=== PATIENT | female | born 1955 | race Two or more races ===

== ENCOUNTER 2017-08-14 23:35 | Emergency (ER) | payer MEDICAID ==
[~2017-08-14] VITALS: Ht 154.9 cm; Wt 89.4 kg
[~2017-08-14 23:35] MED LIST: CYCLOBENZAPRINE10 MG ORAL; IBUPROFEN600 MG ORAL; KENALOG 0.1% LO60 ML APPLIC; MEDROL DOSEPAK4 MG ORAL; NAPROXEN500 M1 ORAL; NKM; NORCO 5-325 TA1 EAC1 ORAL; NORCO 5-325 TA1 EACH ORAL; PRILOSEC40 MG ORAL; SOMA350 MG ORAL; SOMA350 MG PO; VICODIN1 TAB PO
[2017-08-14 23:50] VITALS: BP 138/82
[2017-08-15] MEDS ORDERED: HYDROmorphone 1mg/ml Carpuject IVP ONE (00:15)
[2017-08-15 00:43] LABS: BASOPHILS % (AUTO) 1.4 % (0.0-2.0); EOSINOPHILS % (AUTO) 2.2 % (0.0-3.0); LYMPHOCYTES % (AUTO) 40.8 % (20.0-45.0); MEAN CORPUSCULAR HEMOGLOBIN 32.5 PG (27.0-31.0); MEAN CORPUSCULAR HGB CONC 33.9 G/DL (32.0-36.0); MEAN CORPUSCULAR VOLUME 96 FL (80-99); MEAN PLATELET VOLUME 7.9 FL (6.5-10.1); MONOCYTES % (AUTO) 7.5 % (1.0-10.0); PLATELET COUNT 243 K/UL (150-450); RED BLOOD COUNT 4.31 M/UL (4.20-5.40); RED CELL DISTRIBUTION WIDTH 13.4 % (11.6-14.8)
[2017-08-15 00:47] LABS: APPEARANCE,URINE CLEAR; KETONES,URINE NEGATIVE (NEGATIVE); LEUKOCYTE ESTERASE ,URINE NEGATIVE (NEGATIVE); NITRITE,URINE NEGATIVE (NEGATIVE); PH,URINE 5 (4.5-8.0); PROTEIN,URINE NEGATIVE (NEGATIVE); UROBILINOGEN,URINE NORMAL MG/DL (0.0-1.0)
[2017-08-15 01:13] LABS: ALANINE AMINOTRANSFERASE 29 U/L (12-78); ALBUMIN/GLOBULIN RATIO 1.2 (1.0-2.7); ANION GAP 8 mmol/L (5-15); ASPARTATE AMINO TRANSFERASE 19 U/L (15-37); CALCIUM 9.3 MG/DL (8.5-10.1); CARBON DIOXIDE 32 MMOL/L (21-32); CHLORIDE 102 MMOL/L (98-107); CREATININE 0.8 MG/DL (0.55-1.30); GLOMERULAR FILTRATION RATE > 60 mL/min (>60); LIPASE 214 U/L (73-393); POTASSIUM 3.4 MMOL/L (3.5-5.1); SODIUM 142 MMOL/L (136-145); TOTAL PROTEIN 7.3 G/DL (6.4-8.2)
[2017-08-15] MEDS ORDERED: IBUPROFEN600 MG ORAL (01:50)
--- NOTE | 2017-08-15 01:51 | Emergency Room Report ---
History of Present Illness General Chief Complaint: Pain Source: Patient Present Illness HPI Is a 62-year-old female with a history of back pain requiring surgery. She said she is taking Logan. She presents with chief complaint of left lower quadrant abdominal pain. This is a recurring issue also. She said that she was told that she has a hernia and is causing her pain. She denies any nausea vomiting. Pain for this episode occurred for 2 days now. Left lower quadrant. Severe. 10 out of 10. No nausea no vomiting. No diarrhea. Nothing made it better. Movement made it worse. Allergies: Coded Allergies: No Known Allergies (Unverified , 07/13/12) Patient History Past Medical History: see triage record, old chart reviewed Past Surgical History: other Pertinent Family History: none Social History: Reports: smoking Now: No Immunizations: other Reviewed Nursing Documentation: PMH: Agreed, PSxH: Agreed Nursing Documentation-PMH Hx Neurological Problems: Yes - BACK SURGERY Review of Systems Eye: Denies: eye pain, blurred vision ENT: Denies: ear pain, nose congestion, throat swelling Respiratory: Denies: cough, shortness of breath Cardiovascular: Denies: chest pain, palpitations Gastrointestinal: Reports: abdominal pain, Denies: diarrhea, nausea, vomiting Musculoskeletal: Denies: back pain, joint pain Skin: Denies: rash Neurological: Denies: headache, numbness Endocrine: Denies: increased thirst, increased urine Hematologic/Lymphatic: Denies: easy bruising All Other Systems: negative except mentioned in HPI Physical Exam Vital Signs Date Time Temp Pulse Resp B/P (MAP) Pulse Ox O2 Delivery O2 Flow Rate FiO2 08/14/17 23:42 97.9 73 18 97 Room Air vitals normal Sp02 EP Interpretation: reviewed, normal General Appearance: well appearing, no apparent distress, alert Head: normocephalic, atraumatic Eyes: bilateral eye PERRL, bilateral eye EOMI ENT: hearing grossly normal, normal pharynx Neck: full range of motion, supple, no meningismus Respiratory: chest non-tender, lungs clear, normal breath sounds Cardiovascular #1: regular rate, rhythm, no murmur Gastrointestinal: normal bowel sounds, no mass, no organomegaly, no bruit, non- distended, tenderness - Left lower quadrant Musculoskeletal: back normal, gait/station normal, normal range of motion Psychiatric: mood/affect normal Skin: warm/dry Medical Decision Making Diagnostic Impression: Primary Impression: Abdominal pain Qualified Codes: R10.32 - Left lower quadrant pain ER Course Patient presents With abdominal pain. No acute abdomen. No evidence of diverticulitis. No evidence of appendicitis. There is no hernia in the left lower or inguinal area. Patient is better now. We'll discharge home. Last Vital Signs Date Time Temp Pulse Resp B/P (MAP) Pulse Ox O2 Delivery O2 Flow Rate FiO2 08/15/17 01:06 97.8 08/14/17 23:42 73 18 97 Room Air Status: improved Disposition: HOME, SELF-CARE Condition: Stable Scripts Ibuprofen* (MOTRIN*) 600 Mg Tablet 600 MG ORAL THREE TIMES A DAY, #30 TAB 0 Refills Prov: CAPRICE NGUYEN M.D. 08/15/17 Referrals: NON PHYSICIAN (PCP) Patient Instructions: PAIN, Uncertain Cause (Acute) Additional Instructions: Followup your Dr. in 7 days. Return if symptom worsen. You may benefit from referral to see a literacy coordinator for colonoscopy one has been done recently. CAPRICE NGUYEN M.D. Aug 15, 2017 01:51
[2017-08-15 01:58] VITALS: BP 138/82
--- NOTE | 2017-08-15 09:50 | Diagnostic Imaging Report ---
Indication: Abdominal pain Technique: Spiral acquisitions obtained through the abdomen and pelvis. No oral contrast utilized, per emergency room physician request No IV contrast utilized, per referring physician request.. Multiplanar reconstructions were generated. Total dose length product 1578 mGycm. CTDIvol(s) 32 mGy. Dose reduction achieved using automated exposure control Comparison: None Findings: The appendix is not definitely identified, but no findings to suggest acute appendicitis are evident. No evidence of diverticulosis or diverticulitis. No small bowel distention. No free or loculated intraperitoneal air or fluid. Distal esophagus, stomach, duodenum are unremarkable. There are midline fascial wire sutures. There is a tiny fat-containing umbilical hernia Lack of IV contrast limits assessment of solid organs. The liver, gallbladder, bile ducts, pancreas, spleen, are unremarkable. The left kidney demonstrates a 15 mm cyst. The right kidney demonstrates a 3 mm nonobstructive intrarenal calyceal calculus. No hydronephrosis or hydroureter, or ureteral calculi. Unremarkable bladder. Uterus and adnexal structures are unremarkable. No pelvic mass or adenopathy. No retroperitoneal or mesenteric mass or adenopathy. There is evidence of extensive prior lower spinal surgery. The included lung bases are clear. Impression: No definite acute abnormality Nonobstructing right kidney intrarenal calyceal calculus Evidence of prior spinal fusion surgery Other findings as noted, including left renal cyst, tiny fat-containing umbilical hernia This agrees with the preliminary interpretation provided overnight by [facility] teleradiology service. The CT scanner at [facility] is accredited by the [employer] and the scans are performed using protocols designed to limit radiation exposure to as low as reasonably achievable to attain images of sufficient resolution adequate for diagnostic evaluation.
== END 2017-08-15 01:58 | disposition home or self-care (01) ==
LOC: EMR 08-15 00:30
DX: R10.32 Left lower quadrant pain (principal); F17.200 Nicotine dependence, unspecified, uncomplicated; N20.0 Calculus of kidney; Z98.1 Arthrodesis status
CPT/HCPCS: 36415; 74176; 80053; 81003; 83690; 85025; 96361; 96374; 96375; 99284; J1170; J2405

== ENCOUNTER 2017-08-24 21:47 | Emergency (ER) | payer MEDICAID ==
[~2017-08-24] VITALS: Ht 154.9 cm; Wt 91.2 kg
[2017-08-24 22:24] VITALS: BP 123/62
--- NOTE | 2017-08-24 22:41 | Emergency Room Report ---
History of Present Illness General Chief Complaint: Abdominal Pain Source: Patient, Family Member, Medical Record Present Illness HPI This is a 62-year-old female presents with chief complaint of left lower quadrant pain. Has been ongoing for several months. I saw her about a week ago and blood work was unremarkable. CT scan was unremarkable. She said that she has a hernia in the left lower quadrant. She was told this at [facility] 6 months ago. I checked the records and there was no such thing. She present to Dr. Zamarripa's office today stating that she has a hernia and she is in severe pain. He wrote prescription for pain medication refer her to a surgeon. He also sent her here for incarcerated hernia. I spoke with him regarding this. He is basing this on her account. Allergies: Coded Allergies: No Known Allergies (Unverified , 07/13/12) Patient History Past Medical History: see triage record, old chart reviewed Past Surgical History: other Pertinent Family History: none Social History: Denies: smoking Now: No Immunizations: other Reviewed Nursing Documentation: PMH: Agreed, PSxH: Agreed Nursing Documentation-PMH Hx Neurological Problems: Yes - BACK SURGERY Review of Systems Eye: Denies: eye pain, blurred vision ENT: Denies: ear pain, nose congestion, throat swelling Respiratory: Denies: cough, shortness of breath Cardiovascular: Denies: chest pain, palpitations Gastrointestinal: Reports: abdominal pain, Denies: diarrhea, nausea, vomiting Musculoskeletal: Denies: back pain, joint pain Skin: Denies: rash Neurological: Denies: headache, numbness Endocrine: Denies: increased thirst, increased urine Hematologic/Lymphatic: Denies: easy bruising All Other Systems: negative except mentioned in HPI Physical Exam Vital Signs Date Time Temp Pulse Resp B/P (MAP) Pulse Ox O2 Delivery O2 Flow Rate FiO2 08/24/17 21:54 98.2 87 16 135/72 96 Room Air vitals normal Sp02 EP Interpretation: reviewed, normal General Appearance: well appearing, no apparent distress, alert Head: normocephalic, atraumatic Eyes: bilateral eye PERRL, bilateral eye EOMI ENT: hearing grossly normal, normal pharynx Neck: full range of motion, supple, no meningismus Respiratory: chest non-tender, lungs clear, normal breath sounds Cardiovascular #1: regular rate, rhythm, no murmur Gastrointestinal: normal bowel sounds, no mass, no organomegaly, no bruit, non- distended, tenderness - Diffuse but mostly left lower quadrant Musculoskeletal: back normal, gait/station normal, normal range of motion Neurologic: alert, oriented x3 Psychiatric: other - Patient was very histrionic moaning and crying. Skin: warm/dry Medical Decision Making Diagnostic Impression: Primary Impression: Abdominal pain Qualified Codes: R10.32 - Left lower quadrant pain ER Course Patient present with abdominal pain. She been here several time for abdominal pain. 6 months ago there was no CT scan done. No one diagnosed with hernia. I did a CT scan on her last visit which is about over a week ago. There was a small umbilical hernia that containing only fat. There is no hernia or issue in the left lower quadrant. This is the first time that Dr. Zamarripa saw patient. He was basing his diagnosis of incarcerated hernia on her history. He already refer her to surgeon. Now she is calm and no longer in pain. I see no evidence of an acute abdomen. No evidence of hernia. No evidence of obstruction. We'll discharge home. Last Vital Signs Date Time Temp Pulse Resp B/P (MAP) Pulse Ox O2 Delivery O2 Flow Rate FiO2 08/24/17 22:24 98.2 79 16 123/62 96 Room Air Status: improved Disposition: HOME, SELF-CARE Condition: Stable Patient Instructions: Abdominal Pain, Adult Additional Instructions: Followup with your DrKeisha in 7 days. You have already been referred to see a surgeon. You do not have a hernia in the left lower quadrant. Return if symptom worsen. CAPRICE NGUYEN M.D. Aug 24, 2017 22:41
[2017-08-24 23:00] VITALS: BP 123/62
== END 2017-08-24 23:00 | disposition home or self-care (01) ==
LOC: EMR 22:15
DX: R10.32 Left lower quadrant pain (principal); Z98.890 Other specified postprocedural states
CPT/HCPCS: 99282

== ENCOUNTER 2019-05-04 00:42 | Emergency (ER) | payer MEDICAID ==
[~2019-05-04] VITALS: Ht 154.9 cm; Wt 86.2 kg
--- NOTE | 2019-05-04 01:05 | NUR ---
ED Nurse Note: Pt from home with c/o left lower back and arm pain s/p fall, pt hs had x 3 surgeries to area and on pain management, pt denies k.o or any other injuries or complaints, pt sitting in wheelchair, is present also.
--- NOTE | 2019-05-04 01:23 | Emergency Room Report ---
History of Present Illness General Chief Complaint: Back Injury Source: Patient Present Illness HPI This is a 64-year-old female with history of chronic pain. She has previous back surgery. She presents with chief complaint of low back pain. She claimed that she slipped and fell in the kitchen 5 days ago. She says she got an MRI of her back after her fall. She denies any fever or chills. Pain is 10 out of 10. [place]is is not helping her. No syncope. No incontinence of bowel or urine. No radiation of her pain. Denies any other complaint. Allergies: Coded Allergies: No Known Allergies (Unverified , 07/13/12) Patient History Past Medical History: see triage record, old chart reviewed Past Surgical History: other Pertinent Family History: none Social History: Reports: smoking Now: No Immunizations: other Reviewed Nursing Documentation: PMH: Agreed; PSxH: Agreed Nursing Documentation-PMH Past Medical History: No Stated History Hx Neurological Problems: Yes - BACK SURGERY Review of Systems Eye: Denies: eye pain, blurred vision ENT: Denies: ear pain, nose congestion, throat swelling Respiratory: Denies: cough, shortness of breath Cardiovascular: Denies: chest pain, palpitations Gastrointestinal: Denies: abdominal pain, diarrhea, nausea, vomiting Musculoskeletal: Reports: back pain; Denies: joint pain Skin: Denies: rash Neurological: Denies: headache, numbness Endocrine: Denies: increased thirst, increased urine Hematologic/Lymphatic: Denies: easy bruising All Other Systems: negative except mentioned in HPI Physical Exam Vital Signs Date Time Temp Pulse Resp B/P (MAP) Pulse Ox O2 Delivery O2 Flow Rate FiO2 05/04/19 00:54 97.5 62 18 114/71 (85) 96 Room Air Vitals normal Sp02 EP Interpretation: reviewed, normal General Appearance: well appearing, no apparent distress, alert, obese Head: normocephalic, atraumatic Eyes: bilateral eye PERRL, bilateral eye EOMI ENT: hearing grossly normal, normal pharynx Neck: full range of motion, supple, no meningismus Respiratory: chest non-tender, lungs clear, normal breath sounds Cardiovascular #1: regular rate, rhythm, no murmur Gastrointestinal: normal bowel sounds, non tender, no mass, no organomegaly, no bruit, non-distended Musculoskeletal: back normal - Postsurgical scar. No redness. No step-off., gait/station normal, normal range of motion Psychiatric: mood/affect normal Medical Decision Making Diagnostic Impression: Primary Impression: Acute exacerbation of chronic low back pain ER Course She with exacerbation of her chronic lower back pain. He does not add up. Her MRI shoulder was done on April 20. When I point out to patient that she fell 5 days ago based on her history and she said that she had MRI done afterward. I told her the date does not match up. She then changed her story to state that she had MRI first and then fell a week later. No evidence of cauda equina syndrome, spinal epidural abscess or neoplastic process. She is getting pain medication, Soma and alprazolam by Dr. Zamarripa. I see no need for more prescription. Last Vital Signs Date Time Temp Pulse Resp B/P (MAP) Pulse Ox O2 Delivery O2 Flow Rate FiO2 05/04/19 00:54 97.5 62 18 114/71 (85) 96 Room Air Status: improved Disposition: HOME, SELF-CARE Condition: Stable Patient Instructions: Back Pain, Adult Additional Instructions: Follow-up with your doctor in 7 days. Return if symptoms worsen. You may need to see a pain specialist. Lakhwinder Rowe MD May 04, 2019 01:23
[2019-05-04] MEDS ORDERED: Morphine Sulfate 10mg/ml Inj IM ONE (01:30)
[2019-05-04] MEDS ORDERED: Ketorolac 60mg Inj IM ONE (01:30)
[2019-05-04 01:45] VITALS: BP 114/71
--- NOTE | 2019-05-04 01:45 | NUR ---
ER DISCHARGE NOTE: Patient is cleared to be discharged per ERMD, pt is aox4, on room air, with stable vital signs. pt was given dc and prescription instructions, pt was able to verbalize understanding, pt id band removed without complications. pt is able to ambulate with steady gait. pt took all belongings.
== END 2019-05-04 01:45 | disposition home or self-care (01) ==
LOC: EMR 01:18
DX: M54.5 Low back pain (principal); G89.29 Other chronic pain; F17.200 Nicotine dependence, unspecified, uncomplicated; E66.9 Obesity, unspecified; Z68.35 Body mass index [BMI] 35.0-35.9, adult
CPT/HCPCS: 96372; 99283; J2270

== ENCOUNTER 2019-07-04 23:37 | Emergency (ER) | payer MEDICAID ==
[~2019-07-04] VITALS: Ht 154.9 cm; Wt 90.7 kg
--- NOTE | 2019-07-05 00:18 | Emergency Room Report ---
History of Present Illness General Chief Complaint: Chest Pain Source: Patient Present Illness HPI Patient was in her kitchen and started having a severe headache. Then she started having chest pressure rating down towards her left arm. Her daughter checked her blood pressure was elevated at that time. She is doing slightly better at this moment but she is concerned whether she is having a heart attack. Risk factors smoking. She also complained about nausea at that time but did not vomit. She actually states the headache is been going on for 2 days. She does have headaches like this occasionally. Headache was gradual onset. She denies fevers chills, productive cough, sore throat, blood thinners , oncologic problems, IV drug use and trauma. Headache is throbbing and rated severe. The chest pain is throbbing also radiating towards her shoulder and also rated as severe but poorly characterized. She feels it somewhat sharp. Also somewhat positional. No palpitations, diarrhea, dysuria, abdominal pain, shortness of breath, joint pain, rashes, depression, anxiety, visual changes. Patient has a history of COPD. Denies wheezing at this time. She also denies productive cough. Patient has sciatica on the right-hand side. In the past she was diagnosed with opiate dependence and narcotic seeking behavior. Allergies: Coded Allergies: No Known Allergies (Unverified , 07/13/12) Patient History Past Medical History: see triage record Social History: Reports: smoking, drug use - THC Social History Narrative From home Last Menstrual Period: na Reviewed Nursing Documentation: PMH: Agreed; PSxH: Agreed Nursing Documentation-PMH Hx Neurological Problems: Yes - BACK SURGERY Review of Systems All Other Systems: negative except mentioned in HPI Physical Exam Vital Signs Date Time Temp Pulse Resp B/P (MAP) Pulse Ox O2 Delivery O2 Flow Rate FiO2 07/04/19 23:47 97.2 76 19 128/76 (93) 100 Room Air Sp02 EP Interpretation: reviewed, normal General Appearance: well appearing, no apparent distress, GCS 15, non-toxic Head: normocephalic, atraumatic Eyes: bilateral eye normal inspection, bilateral eye PERRL, bilateral eye EOMI ENT: moist mucus membranes Neck: supple Respiratory: lungs clear, normal breath sounds, other - Some left-sided chest discomfort Cardiovascular #1: regular rate, rhythm, no edema Cardiovascular #2: 2+ radial (R), 2+ radial (L) Gastrointestinal: normal inspection, normal bowel sounds, non tender, no mass, non-distended, overweight Musculoskeletal: back normal, gait/station normal, normal range of motion, no calf tenderness Neurologic: alert, oriented x3, health editor III-XII nml as tested, motor strength/tone normal, DTRs symmetric, sensory intact, cerebellar normal, normal gait, speech normal Psychiatric: mood/affect normal - Slightly anxious Skin: no rash Medical Decision Making Diagnostic Impression: Primary Impression: Chest pain Qualified Codes: R07.9 - Chest pain, unspecified Additional Impression: Head ache Qualified Codes: R51 - Headache ER Course Patient presents with headache for 2 to 3 days chest pain that began this evening. Differential includes acute myocardial infarction, chest wall pain, pulmonary embolus, anxiety, migraine, tension headache, occult infection, hypertensive urgency amongst others. Clinically the patient does not have a pulmonary embolus. Patient evaluated with EKG, chest x-ray and labs. Based on her symptoms of her headache and neurologic exam CT the head is not indicated at this time. The patient is treated with a dose of aspirin and [place]. Patient is placed on shallot packer. Blood pressure is normal at this time. EKG normal sinus rhythm normal EKG. Chest x-ray no infiltrates normal heart size. Labs remarkable for negative troponin. Patient improved with treatment. Discussed etiologies of headache and chest pain. Discussed the need for follow- up with her doctor. She says she has an appointment today. Patient's requesting more treatment for pain. [place] repeated. Discussed with family also. No medical emergency at this time. Discussed with patient importance of smoking cessation and to discuss this with her doctor. Patient stable for outpatient observation and treatment. Laboratory Tests Test 07/05/19 00:30 07/05/19 02:32 White Blood Count 8.0 K/UL (4.8-10.8) Red Blood Count 4.18 M/UL (4.20-5.40) L Hemoglobin 13.1 G/DL (12.0-16.0) Hematocrit 39.7 % (37.0-47.0) Mean Corpuscular Volume 95 FL (80-99) Mean Corpuscular Hemoglobin 31.4 PG (27.0-31.0) H Mean Corpuscular Hemoglobin Concent 33.1 G/DL (32.0-36.0) Red Cell Distribution Width 12.2 % (11.6-14.8) Platelet Count 189 K/UL (150-450) Mean Platelet Volume 7.9 FL (6.5-10.1) Neutrophils (%) (Auto) 46.9 % (45.0-75.0) Lymphocytes (%) (Auto) 42.7 % (20.0-45.0) Monocytes (%) (Auto) 5.8 % (1.0-10.0) Eosinophils (%) (Auto) 3.2 % (0.0-3.0) H Basophils (%) (Auto) 1.4 % (0.0-2.0) Prothrombin Time 10.2 SEC (9.30-11.50) Prothrombin Time INR 1.0 (0.9-1.1) PTT 27 SEC (23-33) Sodium Level 143 MMOL/L (136-145) Potassium Level 3.7 MMOL/L (3.5-5.1) Chloride Level 107 MMOL/L (98-107) Carbon Dioxide Level 28 MMOL/L (21-32) Anion Gap 8 mmol/L (5-15) Blood Urea Nitrogen 22 mg/dL (7-18) H Creatinine 0.7 MG/DL (0.55-1.30) Estimate Glomerular Filtration Rate > 60 mL/min (>60) Glucose Level 118 MG/DL (74-106) H Calcium Level 8.8 MG/DL (8.5-10.1) Total Bilirubin 0.4 MG/DL (0.2-1.0) Aspartate Amino Transferase (AST) 17 U/L (15-37) Alanine Aminotransferase (ALT) 19 U/L (12-78) Alkaline Phosphatase 102 U/L (46-116) Total Creatine Kinase 99 U/L (26-308) Troponin I 0.000 ng/mL (0.000-0.056) Pro-B-Type Natriuretic Peptide 18 pg/mL (0-125) Total Protein 6.6 G/DL (6.4-8.2) Albumin 3.6 G/DL (3.4-5.0) Globulin 3.0 g/dL Albumin/Globulin Ratio 1.2 (1.0-2.7) Serum Alcohol < 3 mg/dL Urine Color Pending Urine Appearance Pending Urine pH Pending Urine Specific [place] Pending Urine Protein Pending Urine Glucose (UA) Pending Urine Ketones Pending Urine Blood Pending Urine Nitrite Pending Urine Bilirubin Pending Urine Urobilinogen Pending Urine Leukocyte Esterase Pending Urine Opiates Screen Pending Urine Barbiturates Screen Pending Phencyclidine (PCP) Screen Pending Urine Amphetamines Screen Pending Urine Benzodiazepines Screen Pending Urine Cocaine Screen Pending Urine Marijuana (THC) Screen Pending EKG Diagnostic Results Rate: normal Rhythm: NSR ST Segments: no acute changes Rhythm Strip Diag. Results EP Interpretation: yes Rhythm: NSR, no PVC's, no ectopy Chest X-Ray Diagnostic Results Chest X-Ray Diagnostic Results : Chest X-Ray Ordered: Yes # of Views/Limited/Complete: 1 View Indication: Chest Pain EP Interpretation: Yes Interpretation: no consolidation, no effusion, no pneumothorax Impression: No acute disease Electronically Signed by: Electronically signed by Rishabh Chinchilla MD Last Vital Signs Date Time Temp Pulse Resp B/P (MAP) Pulse Ox O2 Delivery O2 Flow Rate FiO2 07/05/19 01:18 97.1 07/04/19 23:47 76 19 128/76 (93) 100 Room Air Status: improved Disposition: HOME, SELF-CARE Condition: Improved Scripts Hydrocodone Bit/Acetaminophen 5-325* (NORCO 5-325*) 1 Each Tablet 1 TAB ORAL Q6H PRN for For Pain, #6 TAB 0 Refills Prov: Rishabh Chinchilla MD 07/05/19 Rishabh Chinchilla MD Jul 05, 2019 00:18
[2019-07-05] MEDS ORDERED: HYDROcodone/Acetamin 5/325 tab ORAL ONE ×2 (00:30→03:15)
[2019-07-05 01:15] VITALS: BP 134/77
[2019-07-05 01:15] LABS: BASOPHILS % (AUTO) 1.4 % (0.0-2.0); EOSINOPHILS % (AUTO) 3.2 % (0.0-3.0); HEMATOCRIT 39.7 % (37.0-47.0); HEMOGLOBIN 13.1 G/DL (12.0-16.0); LYMPHOCYTES % (AUTO) 42.7 % (20.0-45.0); MEAN CORPUSCULAR VOLUME 95 FL (80-99); MONOCYTES % (AUTO) 5.8 % (1.0-10.0); NEUTROPHILS % (AUTO) 46.9 % (45.0-75.0); PLATELET COUNT 189 K/UL (150-450); RED BLOOD COUNT 4.18 M/UL (4.20-5.40); RED CELL DISTRIBUTION WIDTH 12.2 % (11.6-14.8)
[2019-07-05 01:31] LABS: ANION GAP 8 mmol/L (5-15); BLOOD UREA NITROGEN 22 mg/dL (7-18); CALCIUM 8.8 MG/DL (8.5-10.1); CARBON DIOXIDE 28 MMOL/L (21-32); CHLORIDE 107 MMOL/L (98-107); CREATININE 0.7 MG/DL (0.55-1.30); POTASSIUM 3.7 MMOL/L (3.5-5.1); SODIUM 143 MMOL/L (136-145)
[2019-07-05 01:41] LABS: ALANINE AMINOTRANSFERASE 19 U/L (12-78); ALBUMIN 3.6 G/DL (3.4-5.0); ALBUMIN/GLOBULIN RATIO 1.2 (1.0-2.7); ALKALINE PHOSPHATASE 102 U/L (46-116); ASPARTATE AMINO TRANSFERASE 17 U/L (15-37); BILIRUBIN,TOTAL 0.4 MG/DL (0.2-1.0); CREATINE KINASE 99 U/L (26-308)
[2019-07-05 03:00] VITALS: BP 130/83
[2019-07-05 03:18] LABS: APPEARANCE,URINE CLEAR; BILIRUBIN, URINE NEGATIVE (NEGATIVE); COLOR,URINE PALE YELLOW; GLUCOSE, URINE (UA) NEGATIVE (NEGATIVE); KETONES,URINE NEGATIVE (NEGATIVE); LEUKOCYTE ESTERASE ,URINE NEGATIVE (NEGATIVE); NITRITE,URINE NEGATIVE (NEGATIVE); PH,URINE 6 (4.5-8.0); PROTEIN,URINE NEGATIVE (NEGATIVE); UROBILINOGEN,URINE NORMAL MG/DL (0.0-1.0)
[2019-07-05] MEDS ORDERED: NORCO 5-325 TA1 EACH ORAL (03:18)
[2019-07-05 03:30] VITALS: BP 134/77
--- NOTE | 2019-07-05 10:52 | Diagnostic Imaging Report ---
Indication: Dyspnea Comparison: None A single view chest radiograph was obtained. Findings: Cardiomediastinal appearance is within normal limits for age. The lungs are clear. Pulmonary vascularity is appropriate. The diaphragmatic contour is smooth and costophrenic angles are sharp. No pleural effusions are identified. The bones are osteopenic. Impression: No acute findings
== END 2019-07-05 03:30 | disposition home or self-care (01) ==
LOC: EMR 23:59
DX: R07.9 Chest pain, unspecified (principal); R51 Headache; F17.200 Nicotine dependence, unspecified, uncomplicated; F12.10 Cannabis abuse, uncomplicated; J44.9 Chronic obstructive pulmonary disease, unspecified
CPT/HCPCS: 36415; 71045; 80053; 80307; 80329; 81003; 82550; 83880; 84484; 85025; 85610; 85730; 93005; 96374; J2405; Z7502; 99284

== ENCOUNTER 2020-08-23 20:53 | Inpatient (IN) | payer MEDICAID ==
[~2020-08-23] VITALS: Ht 154.9 cm; Wt 91.6 kg
[2020-08-23 21:15] VITALS: BP 148/73
[2020-08-23] MEDS ORDERED: Morphine Sulfate 2mg/ml Inj(IV/IM USE ONLY) IVP ONE (21:15)
[2020-08-23] MEDS ORDERED: Omnipaque-300 100ml vial INJ PRN (21:15)
--- NOTE | 2020-08-23 21:27 | Emergency Room Report ---
History of Present Illness General Chief Complaint: Abdominal Pain Source: Patient Present Illness HPI Disclaimer: Please note that this report is being documented using DRAGON technology. This can lead to erroneous entry secondary to incorrect interpretation by the dictating instrument. HPI: 65-year-old female presents for evaluation abdominal pain. She reports intermittent left lower quadrant pain for several months however became 10/10 in intensity today when standing. She states is somewhat aggravated by motion. No significant association with eating and drinking. Denies recent vomiting or diarrhea or fever. Prior history of section. Denies prior history of diverticulitis. Denies dysuria, hematuria, vaginal bleeding, vaginal discharge, flank pain. PMH: Obesity PSH: Back surgery, section Allergies: Reviewed Social Hx: Tobacco use Allergies: Coded Allergies: No Known Allergies (Unverified , 07/13/12) COVID-19 Screening Contact w/high risk pt: No Experienced COVID-19 symptoms?: No COVID-19 Testing performed REPORT SPECIALIST: No Patient History Last Menstrual Period: UNK Now: No : 3 Para: 3 Nursing Documentation-PMH Past Medical History: No History, Except For Hx Neurological Problems: Yes - BACK SURGERY Review of Systems All Other Systems: negative except mentioned in HPI Physical Exam Vital Signs Date Time Temp Pulse Resp B/P (MAP) Pulse Ox O2 Delivery O2 Flow Rate FiO2 08/23/20 20:53 98.2 68 18 148/73 (98) 98 Room Air General: Awake and alert, no acute distress HEENT: NC/AT. EOMI. Cardiovascular: RRR. S1 and S2 normal. No murmur appreciated Resp: Normal work of breathing. No cough, wheezing or crackles appreciated Abdomen: Abdomen is soft, nondistended. Obese abdomen. Tender palpation in the inguinal region without palpable deformity. Also tenderness in suprapubic region over the previous surgical scar in the midline. Mild periumbilical tenderness as well. No palpable defect or mass. No tenderness in the right lower quadrant. There are some tenderness in the left lower quadrant without guarding or rebound. No tenderness in the upper quadrants. Skin: Intact. No abrasions, laceration or rash over the exposed skin MSK: Normal tone and bulk. Moving all extremities. No obvious deformity. Neuro: Awake and alert. Mentating appropriately. Medical Decision Making ER Course Is a 64-year-old female presenting for evaluation abdominal pain. Differential includes was not limited to gastritis, gastroenteritis, pancreatitis, cholecystitis, nephrolithiasis, mesenteric ischemia, appendicitis, UTI, diverticulitis, abdominal mass, bowel obstruction among others. Patient kept n.p.o. Started on IV fluids, antiemetics, pain medications. Labs have returned within normal limits. No leukocytosis, no electrolyte abnormalities, renal function at baseline and no evidence of urinary tract infection. Patient is pending CT scan to evaluate for hernia, obstruction, other intra-abdominal abnormalities. Signed out to oncoming physician pending CT and ultimate disposition. Laboratory Tests Test 08/23/20 21:30 08/24/20 05:19 08/24/20 06:26 White Blood Count 9.4 K/UL (4.8-10.8) 8.0 K/UL (4.8-10.8) Red Blood Count 4.38 M/UL (4.20-5.40) 4.10 M/UL (4.20-5.40) L Hemoglobin 14.1 G/DL (12.0-16.0) 12.9 G/DL (12.0-16.0) Hematocrit 41.4 % (37.0-47.0) 41.2 % (37.0-47.0) Mean Corpuscular Volume 95 FL (80-99) 101 FL (80-99) H Mean Corpuscular Hemoglobin 32.2 PG (27.0-31.0) H 31.5 PG (27.0-31.0) H Mean Corpuscular Hemoglobin Concent 34.0 G/DL (32.0-36.0) 31.4 G/DL (32.0-36.0) L Red Cell Distribution Width 13.4 % (11.6-14.8) 13.4 % (11.6-14.8) Platelet Count 200 K/UL (150-450) 181 K/UL (150-450) Mean Platelet Volume 9.6 FL (6.5-10.1) 8.3 FL (6.5-10.1) Neutrophils (%) (Auto) 44.2 % (45.0-75.0) L 41.3 % (45.0-75.0) L Lymphocytes (%) (Auto) 44.1 % (20.0-45.0) 46.7 % (20.0-45.0) H Monocytes (%) (Auto) 7.6 % (1.0-10.0) 7.8 % (1.0-10.0) Eosinophils (%) (Auto) 2.4 % (0.0-3.0) 3.2 % (0.0-3.0) H Basophils (%) (Auto) 1.7 % (0.0-2.0) 1.0 % (0.0-2.0) Urine Color Pale yellow Urine Appearance Clear Urine pH 5 (4.5-8.0) Urine Specific [place] 1.010 (1.005-1.035) Urine Protein Negative (NEGATIVE) Urine Glucose (UA) Negative (NEGATIVE) Urine Ketones Negative (NEGATIVE) Urine Blood Negative (NEGATIVE) Urine Nitrite Negative (NEGATIVE) Urine Bilirubin Negative (NEGATIVE) Urine Urobilinogen Normal MG/DL (0.0-1.0) Urine Leukocyte Esterase Negative (NEGATIVE) Sodium Level 139 MMOL/L (136-145) 143 MMOL/L (136-145) Potassium Level 4.0 MMOL/L (3.5-5.1) 3.5 MMOL/L (3.5-5.1) Chloride Level 102 MMOL/L (98-107) 105 MMOL/L (98-107) Carbon Dioxide Level 30 MMOL/L (21-32) 33 MMOL/L (21-32) H Anion Gap 7 mmol/L (5-15) 5 mmol/L (5-15) Blood Urea Nitrogen 16 mg/dL (7-18) 12 mg/dL (7-18) Creatinine 0.9 MG/DL (0.55-1.30) 0.8 MG/DL (0.55-1.30) Estimated Glomerular Filtration Rate > 60 mL/min (>60) > 60 mL/min (>60) Glucose Level 95 MG/DL (74-106) 95 MG/DL (74-106) Calcium Level 8.9 MG/DL (8.5-10.1) 8.6 MG/DL (8.5-10.1) Total Bilirubin 0.4 MG/DL (0.2-1.0) 0.5 MG/DL (0.2-1.0) Aspartate Amino Transferase (AST) 30 U/L (15-37) 26 U/L (15-37) Alanine Aminotransferase (ALT) 28 U/L (12-78) 23 U/L (12-78) Alkaline Phosphatase 118 U/L (46-116) H 100 U/L (46-116) Total Protein 6.4 G/DL (6.4-8.2) 6.0 G/DL (6.4-8.2) L Albumin 3.7 G/DL (3.4-5.0) 3.4 G/DL (3.4-5.0) Globulin 2.7 g/dL 2.6 g/dL Albumin/Globulin Ratio 1.4 (1.0-2.7) 1.3 (1.0-2.7) Lipase 108 U/L (73-393) Phosphorus Level 3.5 MG/DL (2.5-4.9) Magnesium Level 1.9 MG/DL (1.8-2.4) POC Whole Blood Glucose Pending Last Vital Signs Date Time Temp Pulse Resp B/P (MAP) Pulse Ox O2 Delivery O2 Flow Rate FiO2 08/23/20 20:53 98.2 68 18 148/73 (98) 98 Room Air Signed Out To: Dr. Macdonald Referrals: [facility],REFERR[facility] (PCP) Jamari Garcia MD Aug 23, 2020 21:27
[2020-08-23 22:08] LABS: ANION GAP 7 mmol/L (5-15); BLOOD UREA NITROGEN 16 mg/dL (7-18); CALCIUM 8.9 MG/DL (8.5-10.1); CARBON DIOXIDE 30 MMOL/L (21-32); CHLORIDE 102 MMOL/L (98-107); CREATININE 0.9 MG/DL (0.55-1.30); SODIUM 139 MMOL/L (136-145)
[2020-08-23 22:09] LABS: APPEARANCE,URINE CLEAR; BILIRUBIN, URINE NEGATIVE (NEGATIVE); COLOR,URINE PALE YELLOW; GLUCOSE, URINE (UA) NEGATIVE (NEGATIVE); KETONES,URINE NEGATIVE (NEGATIVE); LEUKOCYTE ESTERASE ,URINE NEGATIVE (NEGATIVE); NITRITE,URINE NEGATIVE (NEGATIVE); PH,URINE 5 (4.5-8.0); PROTEIN,URINE NEGATIVE (NEGATIVE); UROBILINOGEN,URINE NORMAL MG/DL (0.0-1.0)
[2020-08-23 22:11] LABS: ALANINE AMINOTRANSFERASE 28 U/L (12-78); ALBUMIN 3.7 G/DL (3.4-5.0); ALBUMIN/GLOBULIN RATIO 1.4 (1.0-2.7); ALKALINE PHOSPHATASE 118 U/L (46-116); ASPARTATE AMINO TRANSFERASE 30 U/L (15-37); BILIRUBIN,TOTAL 0.4 MG/DL (0.2-1.0)
[2020-08-23 22:14] LABS: BASOPHILS % (AUTO) 1.7 % (0.0-2.0); EOSINOPHILS % (AUTO) 2.4 % (0.0-3.0); HEMATOCRIT 41.4 % (37.0-47.0); HEMOGLOBIN 14.1 G/DL (12.0-16.0); LYMPHOCYTES % (AUTO) 44.1 % (20.0-45.0); MEAN CORPUSCULAR VOLUME 95 FL (80-99); MONOCYTES % (AUTO) 7.6 % (1.0-10.0); NEUTROPHILS % (AUTO) 44.2 % (45.0-75.0); PLATELET COUNT 200 K/UL (150-450); RED BLOOD COUNT 4.38 M/UL (4.20-5.40); RED CELL DISTRIBUTION WIDTH 13.4 % (11.6-14.8); WHITE BLOOD COUNT 9.4 K/UL (4.8-10.8)
--- NOTE | 2020-08-23 23:10 | Diagnostic Imaging Report ---
EXAM: CT Abdomen and Pelvis With Intravenous Contrast CLINICAL HISTORY: ABD PAIN TECHNIQUE: Axial computed tomography images of the abdomen and pelvis with intravenous contrast. CTDI is 14.1 mGy and DLP is 793.6 mGy-cm. One or more of the following dose reduction techniques were used: automated exposure control, adjustment of the mA and/or kV according to patient size, use of iterative reconstruction technique. COMPARISON: 08/15/2017 FINDINGS: Lung bases: No mass. No consolidation. ABDOMEN: Liver: Mild steatosis. Gallbladder and bile ducts: Unremarkable. Pancreas: Unremarkable. Spleen: Unremarkable. Adrenals: Unremarkable. Kidneys and ureters: No hydronephrosis. Cysts. Punctate nonobstructive stone in the right kidney. Stomach and bowel: No bowel obstruction. No bowel wall thickening. Mild stool burden. Some prominent mildly distended fluid-filled small bowel loops in the left abdomen. PELVIS: Appendix: No evidence of appendicitis. Bladder: Unremarkable. Reproductive: Unremarkable. ABDOMEN and PELVIS: Intraperitoneal space: Unremarkable. Bones/joints: No acute fractures. Posterior fusion. Dextroscoliosis. Soft tissues: Unremarkable. Vasculature: No abdominal aortic aneurysm. Lymph nodes: No enlarged lymph nodes. IMPRESSION: 1. Some prominent mildly distended fluid-filled small bowel loops in the left abdomen. Remaining small bowel loops are unremarkable. May represent gastroenteritis versus very early partial small bowel obstruction. 2. Mild stool burden throughout the colon. 3. Mild hepatic steatosis. 4. Nonobstructive stone in the right kidney.
[2020-08-23] MEDS ORDERED: Ketorolac 30mg Inj IV ONE (23:15)
--- NOTE | 2020-08-24 00:08 | Emergency Room Report ---
Physical Exam Vital Signs Date Time Temp Pulse Resp B/P (MAP) Pulse Ox O2 Delivery O2 Flow Rate FiO2 08/23/20 20:53 98.2 68 18 148/73 (98) 98 Room Air Sp02 EP Interpretation: reviewed, normal Medical Decision Making Diagnostic Impression: Primary Impression: Abdominal pain Additional Impressions: Small bowel obstruction 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 Constipation Gastroenteritis Kidney stone Hepatic steatosis ER Course 65-year-old female presenting with acute on chronic left lower quadrant abdominal pain with nausea. Labs are unremarkable. Urinalysis is negative for UTI. CT scan shows early small bowel obstruction vs gastroenteritis. Incidentally also found hepatic steatosis, nonobstructing kidney stone, and gastroenteritis.No diverticulosis or diverticulitis. continues to be nauseous and symptomatic in the ER. Unable to tolerate p.o. Will admit for observation. No NG tube indicated at this time. Will give IV fluids, pain control, and bowel rest. I spoke with Dr. Wick, and reviewed the patients presentation, workup, results, and treatment. They will admit the patient for further care and evaluation, and assume care of the patient at this time. CT/MRI/US Diagnostic Results CT/MRI/US Diagnostic Results : Impression CT Abdomen Pelvis w/Contras EXAM: FINDINGS: Lung bases: No mass. No consolidation. ABDOMEN: Liver: Mild steatosis. Gallbladder and bile ducts: Unremarkable. Pancreas: Unremarkable. Spleen: Unremarkable. Adrenals: Unremarkable. Kidneys and ureters: No hydronephrosis. Cysts. Punctate nonobstructive stone in the right kidney. Stomach and bowel: No bowel obstruction. No bowel wall thickening. Mild stool burden. Some prominent mildly distended fluid-filled small bowel loops in the left abdomen. PELVIS: Appendix: No evidence of appendicitis. Bladder: Unremarkable. Reproductive: Unremarkable. ABDOMEN and PELVIS: Intraperitoneal space: Unremarkable. Bones/joints: No acute fractures. Posterior fusion. Dextroscoliosis. Soft tissues: Unremarkable. Vasculature: No abdominal aortic aneurysm. Lymph nodes: No enlarged lymph nodes. IMPRESSION: 1. Some prominent mildly distended fluid-filled small bowel loops in the left abdomen. Remaining small bowel loops are unremarkable. May represent gastroenteritis versus very early partial small bowel obstruction. 2. Mild stool burden throughout the colon. 3. Mild hepatic steatosis. 4. Nonobstructive stone in the right kidney. Dictated By: PINEDA DELEON M.D. Reevaluation Time: 00:06 Last Vital Signs Date Time Temp Pulse Resp B/P (MAP) Pulse Ox O2 Delivery O2 Flow Rate FiO2 08/23/20 21:57 98.2 08/23/20 21:15 70 18 Room Air 08/23/20 21:15 148/73 98 Status: improved Disposition: ADMITTED INPATIENT Admit Decision Time: 12:00 Condition: Stable Referrals: [facility]ERR[facility] (PCP) Amy Macdonald D.O. Aug 24, 2020 00:08
[2020-08-24 01:30] VITALS: BP 140/83
[2020-08-24] MEDS ORDERED: CARISOPRODOL350 MG ORAL (01:41)
[2020-08-24] MEDS ORDERED: ALPRAZOLAM1 MG ORAL (01:41)
[2020-08-24] MEDS ORDERED: D5 1/2NS 1,000 ML IV SCH (02:15)
[2020-08-24] MEDS: Morphine Sulfate 2mg/ml Inj(IV/IM USE ONLY) IVP PRN ×3 (02:45→12:58)
[2020-08-24 04:00] VITALS: BP 119/64
[2020-08-24] MEDS: Heparin 5000 units/ml inj SUBQ SCH ×2 (05:27→14:00)
[2020-08-24 06:24] LABS: EOSINOPHILS % (AUTO) 3.2 % (0.0-3.0); HEMATOCRIT 41.2 % (37.0-47.0); HEMOGLOBIN 12.9 G/DL (12.0-16.0); LYMPHOCYTES % (AUTO) 46.7 % (20.0-45.0); MEAN CORPUSCULAR VOLUME 101 FL (80-99); MONOCYTES % (AUTO) 7.8 % (1.0-10.0); NEUTROPHILS % (AUTO) 41.3 % (45.0-75.0); PLATELET COUNT 181 K/UL (150-450); RED CELL DISTRIBUTION WIDTH 13.4 % (11.6-14.8)
[2020-08-24 06:46] LABS: ALANINE AMINOTRANSFERASE 23 U/L (12-78); ALBUMIN 3.4 G/DL (3.4-5.0); ALBUMIN/GLOBULIN RATIO 1.3 (1.0-2.7); ALKALINE PHOSPHATASE 100 U/L (46-116); ANION GAP 5 mmol/L (5-15); ASPARTATE AMINO TRANSFERASE 26 U/L (15-37); BILIRUBIN,TOTAL 0.5 MG/DL (0.2-1.0); BLOOD UREA NITROGEN 12 mg/dL (7-18); CALCIUM 8.6 MG/DL (8.5-10.1); CARBON DIOXIDE 33 MMOL/L (21-32); CHLORIDE 105 MMOL/L (98-107); CREATININE 0.8 MG/DL (0.55-1.30); PHOSPHORUS 3.5 MG/DL (2.5-4.9); POTASSIUM 3.5 MMOL/L (3.5-5.1); SODIUM 143 MMOL/L (136-145)
[2020-08-24 08:00] VITALS: BP 143/60
--- NOTE | 2020-08-24 10:09 | Diagnostic Imaging Report ---
Indication: Abdominal pain Technique: Supine view of the abdomen Comparison: Abdomen pelvis CT 08/23/2020. No comparison plain radiographs Findings: Body habitus somewhat limits evaluation. Focally dilated small bowel loop seen in the left upper quadrant on previous CT scan are not evident currently. Bowel gas pattern is currently unremarkable. Again demonstrated is evidence of prior lower lumbar spine fusion surgery. Impression: Focally dilated small bowel loops on previous CT scan are no longer evident, may reflect decreasing ileus or resolved partial small bowel obstruction
[2020-08-24 12:00] VITALS: BP 133/58
--- NOTE | 2020-08-24 13:25 | Consultation ---
History of Present Illness General Date patient seen: Aug 24, 2020 Chief Complaint: Abdominal Pain Present Illness HPI 65-year-old female with hx of back surgery and sciatica, chronic back pain walked in to ER for evaluation abdominal pain. She reports intermittent left lower quadrant pain for several months however became 10/10 in intensity today when standing. Denies recent vomiting or diarrhea or fever. Allergies: Coded Allergies: No Known Allergies (Unverified , 07/13/12) Medication History Scheduled Alprazolam* (Xanax*), 1 MG ORAL DAILY, (Reported) Carisoprodol* (Carisoprodol*), 350 MG ORAL Q6H, (Reported) Scheduled PRN Hydrocodone Bit/Acetaminophen 5-325* ([place] 5-325*), 1 TAB ORAL Q6H PRN for For Pain Discontinued Medications Ibuprofen (Motrin), 600 MG ORAL THREE TIMES A DAY Discontinued Reason: Pt stopped taking med Patient History Healthcare decision maker Resuscitation status Advanced Directive on File Past Medical/Surgical History Past Medical/Surgical History: (1) Back Pain Exacerbation (2) Constipation (3) Gastroenteritis (4) Hepatic steatosis (5) 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 Review of Systems All Other Systems: negative except mentioned in HPI Physical Exam General Appearance: WD/WN Lines, tubes and drains: peripheral HEENT: normocephalic, anicteric, PERRL Neck: normal alignment Respiratory/Chest: chest wall non-tender, lungs clear Cardiovascular/Chest: normal peripheral pulses, normal rate Genitourinary/Rectal: normal genital exam, normal rectal exam Extremities: normal range of motion, non-tender Skin Exam: normal pigmentation Neurologic: division superintendent II-XII grossly normal Last 24 Hour Vital Signs Date Time Temp Pulse Resp B/P (MAP) Pulse Ox O2 Delivery O2 Flow Rate FiO2 08/24/20 12:00 97.7 59 18 133/58 (83) 96 08/24/20 09:00 Room Air 08/24/20 08:00 97.2 56 17 143/60 (87) 96 08/24/20 04:00 97.0 63 16 119/64 (82) 96 08/24/20 02:20 Room Air 08/24/20 01:30 97.5 59 18 140/83 (102) 97 08/24/20 01:19 98.2 85 18 137/82 98 Room Air 08/23/20 23:40 98.2 08/23/20 21:57 98.2 08/23/20 21:15 70 18 Room Air 08/23/20 21:15 98.2 70 18 148/73 98 Room Air 08/23/20 20:53 98.2 68 18 148/73 (98) 98 Room Air Intake and Output 08/23/20 08/24/20 19:00 07:00 Intake Total 300 ml Balance 300 ml Intake IV Total 300 ml # Voids 1 Laboratory Tests Test 08/23/20 21:30 08/24/20 05:19 08/24/20 06:26 White Blood Count 9.4 K/UL (4.8-10.8) 8.0 K/UL (4.8-10.8) Red Blood Count 4.38 M/UL (4.20-5.40) 4.10 M/UL (4.20-5.40) L Hemoglobin 14.1 G/DL (12.0-16.0) 12.9 G/DL (12.0-16.0) Hematocrit 41.4 % (37.0-47.0) 41.2 % (37.0-47.0) Mean Corpuscular Volume 95 FL (80-99) 101 FL (80-99) H Mean Corpuscular Hemoglobin 32.2 PG (27.0-31.0) H 31.5 PG (27.0-31.0) H Mean Corpuscular Hemoglobin Concent 34.0 G/DL (32.0-36.0) 31.4 G/DL (32.0-36.0) L Red Cell Distribution Width 13.4 % (11.6-14.8) 13.4 % (11.6-14.8) Platelet Count 200 K/UL (150-450) 181 K/UL (150-450) Mean Platelet Volume 9.6 FL (6.5-10.1) 8.3 FL (6.5-10.1) Neutrophils (%) (Auto) 44.2 % (45.0-75.0) L 41.3 % (45.0-75.0) L Lymphocytes (%) (Auto) 44.1 % (20.0-45.0) 46.7 % (20.0-45.0) H Monocytes (%) (Auto) 7.6 % (1.0-10.0) 7.8 % (1.0-10.0) Eosinophils (%) (Auto) 2.4 % (0.0-3.0) 3.2 % (0.0-3.0) H Basophils (%) (Auto) 1.7 % (0.0-2.0) 1.0 % (0.0-2.0) Urine Color Pale yellow Urine Appearance Clear Urine pH 5 (4.5-8.0) Urine Specific [place] 1.010 (1.005-1.035) Urine Protein Negative (NEGATIVE) Urine Glucose (UA) Negative (NEGATIVE) Urine Ketones Negative (NEGATIVE) Urine Blood Negative (NEGATIVE) Urine Nitrite Negative (NEGATIVE) Urine Bilirubin Negative (NEGATIVE) Urine Urobilinogen Normal MG/DL (0.0-1.0) Urine Leukocyte Esterase Negative (NEGATIVE) Sodium Level 139 MMOL/L (136-145) 143 MMOL/L (136-145) Potassium Level 4.0 MMOL/L (3.5-5.1) 3.5 MMOL/L (3.5-5.1) Chloride Level 102 MMOL/L (98-107) 105 MMOL/L (98-107) Carbon Dioxide Level 30 MMOL/L (21-32) 33 MMOL/L (21-32) H Anion Gap 7 mmol/L (5-15) 5 mmol/L (5-15) Blood Urea Nitrogen 16 mg/dL (7-18) 12 mg/dL (7-18) Creatinine 0.9 MG/DL (0.55-1.30) 0.8 MG/DL (0.55-1.30) Estimat Glomerular Filtration Rate > 60 mL/min (>60) > 60 mL/min (>60) Glucose Level 95 MG/DL (74-106) 95 MG/DL (74-106) Calcium Level 8.9 MG/DL (8.5-10.1) 8.6 MG/DL (8.5-10.1) Total Bilirubin 0.4 MG/DL (0.2-1.0) 0.5 MG/DL (0.2-1.0) Aspartate Amino Transf (AST/SGOT) 30 U/L (15-37) 26 U/L (15-37) Alanine Aminotransferase (ALT/SGPT) 28 U/L (12-78) 23 U/L (12-78) Alkaline Phosphatase 118 U/L (46-116) H 100 U/L (46-116) Total Protein 6.4 G/DL (6.4-8.2) 6.0 G/DL (6.4-8.2) L Albumin 3.7 G/DL (3.4-5.0) 3.4 G/DL (3.4-5.0) Globulin 2.7 g/dL 2.6 g/dL Albumin/Globulin Ratio 1.4 (1.0-2.7) 1.3 (1.0-2.7) Lipase 108 U/L (73-393) Phosphorus Level 3.5 MG/DL (2.5-4.9) Magnesium Level 1.9 MG/DL (1.8-2.4) POC Whole Blood Glucose Pending Height (Feet): 5 Height (Inches): 1.00 Weight (Pounds): 202 Medications Current Medications Medications (Trade) Dose Ordered Sig/Damion Route PRN Reason Start Time Stop Time Status Last Admin Dose Admin Dextrose/Sodium Chloride 1,000 ml @ 75 mls/hr [id number] IV 08/24/20 02:15 09/23/20 02:14 08/24/20 02:44 Heparin Sodium (Porcine) (Heparin 5000 units/ml) 5,000 units EVERY 8 HOURS SUBQ 08/24/20 06:00 10/08/20 05:59 08/24/20 05:27 Iohexol (OMNIPAQUE-300 100ml) 100 ml NOW PRN INJ Radiology Procedure 08/23/20 21:15 08/25/20 21:14 Morphine Sulfate (Morphine Sulfate) 2 mg Q4H PRN IVP Severe Pain (Pain Scale 7-10) 08/24/20 02:15 08/31/20 02:14 08/24/20 12:58 Ondansetron HCl (Zofran) 4 mg Q6H PRN IVP Nausea & Vomiting 08/24/20 02:15 09/23/20 02:14 08/24/20 09:33 Assessment/Plan Problem List: (1) Small bowel obstruction ICD Codes: K56.609 - Unspecified intestinal obstruction, unspecified as to partial versus complete obstruction SNOMED: 604236959 (2) Back Pain Exacerbation (3) Hepatic steatosis ICD Codes: K76.0 - Fatty (change of) liver, not elsewhere classified SNOMED: 270641903 (4) Gastroenteritis ICD Codes: K52.9 - Noninfective gastroenteritis and colitis, unspecified SNOMED: 64163296 (5) Constipation ICD Codes: K59.00 - Constipation, unspecified SNOMED: 43711405 Assessment/Plan: GI and surgical evaluation symptomatic treatment check electrolytes, and inflammatory markers pain management. Michi De Los Santos MD Aug 24, 2020 13:25
--- NOTE | 2020-08-24 13:56 | General Progress Note ---
Subjective ROS Limited/Unobtainable: No Allergies: Coded Allergies: No Known Allergies (Unverified , 07/13/12) Objective Last 24 Hour Vital Signs Date Time Temp Pulse Resp B/P (MAP) Pulse Ox O2 Delivery O2 Flow Rate FiO2 08/24/20 12:00 97.7 59 18 133/58 (83) 96 08/24/20 09:00 Room Air 08/24/20 08:00 97.2 56 17 143/60 (87) 96 08/24/20 04:00 97.0 63 16 119/64 (82) 96 08/24/20 02:20 Room Air 08/24/20 01:30 97.5 59 18 140/83 (102) 97 08/24/20 01:19 98.2 85 18 137/82 98 Room Air 08/23/20 23:40 98.2 08/23/20 21:57 98.2 08/23/20 21:15 70 18 Room Air 08/23/20 21:15 98.2 70 18 148/73 98 Room Air 08/23/20 20:53 98.2 68 18 148/73 (98) 98 Room Air Intake and Output 08/23/20 08/24/20 19:00 07:00 Intake Total 300 ml Balance 300 ml Intake IV Total 300 ml # Voids 1 Laboratory Tests 08/23/20 21:30: White Blood Count 9.4, Red Blood Count 4.38, Hemoglobin 14.1, Hematocrit 41.4, Mean Corpuscular Volume 95, Mean Corpuscular Hemoglobin 32.2H, Mean Corpuscular Hemoglobin Concent 34.0, Red Cell Distribution Width 13.4, Platelet Count 200, Mean Platelet Volume 9.6, Neutrophils (%) (Auto) 44.2L, Lymphocytes (%) (Auto) 44.1, Monocytes (%) (Auto) 7.6, Eosinophils (%) (Auto) 2.4, Basophils (%) (Auto) 1.7, Urine Color Pale yellow, Urine Appearance Clear, Urine pH 5, Urine Specific [place] 1.010, Urine Protein Negative, Urine Glucose (UA) Negative, Urine Ketones Negative, Urine Blood Negative, Urine Nitrite Negative, Urine Bilirubin Negative, Urine Urobilinogen Normal, Urine Leukocyte Esterase Negative, Sodium Level 139, Potassium Level 4.0, Chloride Level 102, Carbon Dioxide Level 30, Anion Gap 7, Blood Urea Nitrogen 16, Creatinine 0.9, Estimat Glomerular Filtration Rate > 60, Glucose Level 95, Calcium Level 8.9, Total Bilirubin 0.4, Aspartate Amino Transf (AST/SGOT) 30, Alanine Aminotransferase (ALT/SGPT) 28, Alkaline Phosphatase 118H, Total Protein 6.4, Albumin 3.7, Globulin 2.7, Albumin/Globulin Ratio 1.4, Lipase 108 08/24/20 05:19: White Blood Count 8.0, Red Blood Count 4.10L, Hemoglobin 12.9, Hematocrit 41.2, Mean Corpuscular Volume 101H, Mean Corpuscular Hemoglobin 31.5H, Mean Corpuscular Hemoglobin Concent 31.4L, Red Cell Distribution Width 13.4, Platelet Count 181, Mean Platelet Volume 8.3, Neutrophils (%) (Auto) 41.3L, Lymphocytes (%) (Auto) 46.7H, Monocytes (%) (Auto) 7.8, Eosinophils (%) (Auto) 3.2H, Basophils (%) (Auto) 1.0, Sodium Level 143, Potassium Level 3.5, Chloride Level 105, Carbon Dioxide Level 33H, Anion Gap 5, Blood Urea Nitrogen 12, Creatinine 0.8, Estimat Glomerular Filtration Rate > 60, Glucose Level 95, Calcium Level 8.6, Total Bilirubin 0.5, Aspartate Amino Transf (AST/SGOT) 26, Alanine Aminotransferase (ALT/SGPT) 23, Alkaline Phosphatase 100, Total Protein 6.0L, Albumin 3.4, Globulin 2.6, Albumin/Globulin Ratio 1.3, Phosphorus Level 3.5, Magnesium Level 1.9 08/24/20 06:26: POC Whole Blood Glucose [Pending] Height (Feet): 5 Height (Inches): 1.00 Weight (Pounds): 202 General Appearance: alert EENT: PERRL/EOMI Neck: supple Cardiovascular: normal rate Respiratory/Chest: decreased breath sounds Abdomen: soft, hypoactive bowel sounds, tender Extremities: non-tender Assessment/Plan Assessment/Plan: abd pain no anemia no elevated LFTS CT and X ray reviewed passing gas wants to eat will need out patient colonoscopy Freddie Lincoln MD Aug 24, 2020 13:56
--- NOTE | 2020-08-24 14:26 | History & Physical ---
History and Physical History & Physicial Alec Wick MD Aug 24, 2020 14:26
[2020-08-24] MEDS ORDERED: D5 1/2NS 1000ml IV ONE (14:59)
--- NOTE | 2020-08-24 16:53 | Consultation ---
History of Present Illness General Date patient seen: Aug 24, 2020 Reason for Hospitalization: Abdominal Pain Present Illness HPI 65-year-old female presents for evaluation abdominal pain. She reports intermittent left lower quadrant pain for several months however became 10/10 in intensity today when standing. She states is somewhat aggravated by motion. No significant association with eating and drinking. Denies recent vomiting or diarrhea or fever. Prior history of section. Denies prior history of diverticulitis. Denies dysuria, hematuria, vaginal bleeding, vaginal discharge, flank pain. surgery called to eval for possible sbo Allergies: Coded Allergies: No Known Allergies (Unverified , 07/13/12) COVID-19 Screening Contact w/high risk pt: No Experienced COVID-19 symptoms?: No Medication History Scheduled Alprazolam* (Xanax*), 1 MG ORAL DAILY, (Reported) Carisoprodol* (Carisoprodol*), 350 MG ORAL Q6H, (Reported) Scheduled PRN Hydrocodone Bit/Acetaminophen 5-325* ([place] 5-325*), 1 TAB ORAL Q6H PRN for For Pain Discontinued Medications Ibuprofen (Motrin), 600 MG ORAL THREE TIMES A DAY Discontinued Reason: Pt stopped taking med Patient History History Provided By: Medical Record, PMD Healthcare decision maker Resuscitation status Advanced Directive on File Past Medical/Surgical History Past Medical/Surgical History: (1) Back Pain Exacerbation (2) Acute exacerbation of chronic low back pain (3) Constipation (4) Gastroenteritis (5) Hepatic steatosis (6) 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 (7) Small bowel obstruction Review of Systems Review of Symptoms General ROS: no weight loss or fever Psychological ROS: no depression or mood changes, no memory loss Ophthalmic ROS: no visual changes or eye irritation ENT ROS: no nasal congestion, hearing loss, dizziness Allergy and Immunology ROS: no allergic symptoms or urticaria Hematological and Lymphatic ROS: no swollen glands, unusual bleeding or bruising Endocrine ROS: no polyuria, polydipsia, weight changes, temperature intolerance Respiratory ROS: no cough, shortness of breath, or wheezing Cardiovascular ROS: no chest pain or dyspnea on exertion Gastrointestinal ROS: denies abdominal pain, bright red blood in stool. Musculoskeletal ROS: no myalgias or arthralgias Neurological ROS: no TIA or stroke symptoms Dermatological ROS: no new or changing skin lesions, rashes or pruritis Physical Exam Physical Exam General appearance: alert, cooperative, no distress, appears stated age Head: Normocephalic, without obvious abnormality, atraumatic Eyes: conjunctivae/corneas clear. PERRL, EOM's intact. Fundi benign Throat: Lips, mucosa, and tongue normal. Teeth and gums normal Neck: supple, symmetrical, trachea midline, no adenopathy, thyroid: not enlarged, symmetric, no tenderness/mass/nodules, no carotid bruit and no JVD Lungs: clear to auscultation bilaterally Heart: regular rate and rhythm, S1, S2 normal, no murmur, click, rub or gallop Abdomen: soft, non-tender. Bowel sounds normal. No masses, no organomegaly Extremities: extremities normal, atraumatic, no cyanosis or edema Pulses: 2+ and symmetric Skin: Skin color, texture, turgor normal. No rashes or lesions Neurologic: Grossly normal Last 24 Hour Vital Signs Date Time Temp Pulse Resp B/P (MAP) Pulse Ox O2 Delivery O2 Flow Rate FiO2 08/24/20 13:28 97.7 08/24/20 12:00 97.7 59 18 133/58 (83) 96 08/24/20 09:00 Room Air 08/24/20 08:00 97.2 56 17 143/60 (87) 96 08/24/20 04:00 97.0 63 16 119/64 (82) 96 08/24/20 02:20 Room Air 08/24/20 01:30 97.5 59 18 140/83 (102) 97 08/24/20 01:19 98.2 85 18 137/82 98 Room Air 08/23/20 23:40 98.2 08/23/20 21:57 98.2 08/23/20 21:15 70 18 Room Air 08/23/20 21:15 98.2 70 18 148/73 98 Room Air 08/23/20 20:53 98.2 68 18 148/73 (98) 98 Room Air Intake and Output 08/23/20 08/24/20 19:00 07:00 Intake Total 300 ml Balance 300 ml Intake IV Total 300 ml # Voids 1 Laboratory Tests Test 08/23/20 21:30 08/24/20 05:19 08/24/20 06:26 White Blood Count 9.4 K/UL (4.8-10.8) 8.0 K/UL (4.8-10.8) Red Blood Count 4.38 M/UL (4.20-5.40) 4.10 M/UL (4.20-5.40) L Hemoglobin 14.1 G/DL (12.0-16.0) 12.9 G/DL (12.0-16.0) Hematocrit 41.4 % (37.0-47.0) 41.2 % (37.0-47.0) Mean Corpuscular Volume 95 FL (80-99) 101 FL (80-99) H Mean Corpuscular Hemoglobin 32.2 PG (27.0-31.0) H 31.5 PG (27.0-31.0) H Mean Corpuscular Hemoglobin Concent 34.0 G/DL (32.0-36.0) 31.4 G/DL (32.0-36.0) L Red Cell Distribution Width 13.4 % (11.6-14.8) 13.4 % (11.6-14.8) Platelet Count 200 K/UL (150-450) 181 K/UL (150-450) Mean Platelet Volume 9.6 FL (6.5-10.1) 8.3 FL (6.5-10.1) Neutrophils (%) (Auto) 44.2 % (45.0-75.0) L 41.3 % (45.0-75.0) L Lymphocytes (%) (Auto) 44.1 % (20.0-45.0) 46.7 % (20.0-45.0) H Monocytes (%) (Auto) 7.6 % (1.0-10.0) 7.8 % (1.0-10.0) Eosinophils (%) (Auto) 2.4 % (0.0-3.0) 3.2 % (0.0-3.0) H Basophils (%) (Auto) 1.7 % (0.0-2.0) 1.0 % (0.0-2.0) Urine Color Pale yellow Urine Appearance Clear Urine pH 5 (4.5-8.0) Urine Specific [place] 1.010 (1.005-1.035) Urine Protein Negative (NEGATIVE) Urine Glucose (UA) Negative (NEGATIVE) Urine Ketones Negative (NEGATIVE) Urine Blood Negative (NEGATIVE) Urine Nitrite Negative (NEGATIVE) Urine Bilirubin Negative (NEGATIVE) Urine Urobilinogen Normal MG/DL (0.0-1.0) Urine Leukocyte Esterase Negative (NEGATIVE) Sodium Level 139 MMOL/L (136-145) 143 MMOL/L (136-145) Potassium Level 4.0 MMOL/L (3.5-5.1) 3.5 MMOL/L (3.5-5.1) Chloride Level 102 MMOL/L (98-107) 105 MMOL/L (98-107) Carbon Dioxide Level 30 MMOL/L (21-32) 33 MMOL/L (21-32) H Anion Gap 7 mmol/L (5-15) 5 mmol/L (5-15) Blood Urea Nitrogen 16 mg/dL (7-18) 12 mg/dL (7-18) Creatinine 0.9 MG/DL (0.55-1.30) 0.8 MG/DL (0.55-1.30) Estimat Glomerular Filtration Rate > 60 mL/min (>60) > 60 mL/min (>60) Glucose Level 95 MG/DL (74-106) 95 MG/DL (74-106) Calcium Level 8.9 MG/DL (8.5-10.1) 8.6 MG/DL (8.5-10.1) Total Bilirubin 0.4 MG/DL (0.2-1.0) 0.5 MG/DL (0.2-1.0) Aspartate Amino Transf (AST/SGOT) 30 U/L (15-37) 26 U/L (15-37) Alanine Aminotransferase (ALT/SGPT) 28 U/L (12-78) 23 U/L (12-78) Alkaline Phosphatase 118 U/L (46-116) H 100 U/L (46-116) Total Protein 6.4 G/DL (6.4-8.2) 6.0 G/DL (6.4-8.2) L Albumin 3.7 G/DL (3.4-5.0) 3.4 G/DL (3.4-5.0) Globulin 2.7 g/dL 2.6 g/dL Albumin/Globulin Ratio 1.4 (1.0-2.7) 1.3 (1.0-2.7) Lipase 108 U/L (73-393) Phosphorus Level 3.5 MG/DL (2.5-4.9) Magnesium Level 1.9 MG/DL (1.8-2.4) POC Whole Blood Glucose Pending Height (Feet): 5 Height (Inches): 1.00 Weight (Pounds): 202 Assessment/Plan Problem List: (1) Back Pain Exacerbation (2) Acute exacerbation of chronic low back pain ICD Codes: M54.5 - Low back pain; G89.29 - Other chronic pain SNOMED: 953070657 (3) Constipation ICD Codes: K59.00 - Constipation, unspecified SNOMED: 44465425 (4) Gastroenteritis ICD Codes: K52.9 - Noninfective gastroenteritis and colitis, unspecified SNOMED: 32500409 (5) Hepatic steatosis ICD Codes: K76.0 - Fatty (change of) liver, not elsewhere classified SNOMED: 984677844 (6) 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 Gallbladder and bile ducts: Unremarkable. Pancreas: Unremarkable. Spleen: Unremarkable. Adrenals: Unremarkable. Kidneys and ureters: No hydronephrosis. Cysts. Punctate nonobstructive stone in the right kidney. Stomach and bowel: No bowel obstruction. No bowel wall thickening. Mild stool burden. Some prominent mildly distended fluid-filled small bowel loops in the left abdomen. PELVIS: Appendix: No evidence of appendicitis. Bladder: Unremarkable. Reproductive: Unremarkable. ABDOMEN and PELVIS: Intraperitoneal space: Unremarkable. Bones/joints: No acute fractures. Posterior fusion. Dextroscoliosis. Soft tissues: Unremarkable. Vasculature: No abdominal aortic aneurysm. Lymph nodes: No enlarged lymph nodes. IMPRESSION: 1. Some prominent mildly distended fluid-filled small bowel loops in the left abdomen. Remaining small bowel loops are unremarkable. May represent gastroenteritis versus very early partial small bowel obstruction. 2. Mild stool burden throughout the colon. 3. Mild hepatic steatosis. 4. Nonobstructive stone in the right kidney. ICD Codes: K56.609 - Unspecified intestinal obstruction, unspecified as to partial versus complete obstruction SNOMED: 676791452 Kristian Alicea Aug 24, 2020 16:53
--- NOTE | 2020-08-24 19:44 | History and Physical Report ---
DATE OF ADMISSION: 08/24/2020 CHIEF COMPLAINT: Abdominal pain. HISTORY OF PRESENT ILLNESS: This is a 65-year-old very delightful female with past medical history significant for chronic abdominal pain with history of chronic constipation, lower back pain, gastroenteritis, hepatic steatosis, sciatica of right side associated with lumbar disc disease, and small bowel obstruction in the past, who presented to the hospital complaining of left lower quadrant abdominal pain for several months. The patient stated the pain is 10/10 in intensity, progressive worsening and somewhat aggravated with motion. Denies any nausea, vomiting, or diarrhea, however, the patient has been having history of constipation. She had a history of C-sections in the past as well as left ovary resection. Shortly after initial evaluation in the emergency department, the patient was admitted to the hospital with abdominal pain possible due to the small bowel obstruction. PAST MEDICAL HISTORY/PAST SURGICAL HISTORY: As above, history of chronic abdominal pain, lower back pain due to the sciatica, constipation, gastroenteritis, hepatic steatosis, and obesity. MEDICATIONS AT HOME: Please refer to medication reconciliation. ALLERGIES: No known drug allergies. SOCIAL HISTORY: Positive history of smoking 10 cigarettes a day. Denies any alcohol or substance abuse. FAMILY HISTORY: Noncontributory. REVIEW OF SYSTEMS: Mostly as above. Denies any dysuria, frequency, hematuria, fever, chills, or nausea or vomiting. Denies any loss of consciousness. Denies any fall or head trauma. PHYSICAL EXAMINATION: VITAL SIGNS: On admission, temperature 98.2, pulse of 68, respirations 18, and blood pressure 148/72. GENERAL: The patient is awake and responsive, in no acute distress. HEAD AND NECK: Pupils are equal and reactive to light. Extraocular movements are intact. Neck was supple. No JVD. LUNGS: Good air entry with no wheezing or rales. HEART: S1, S2. Regular rhythm. No gallops. ABDOMEN: Soft, nondistended, nontender. No rebound tenderness. No fluid shift. Morbidly obese. EXTREMITIES: No cyanosis, clubbing, or edema. NEUROLOGIC: Cranial nerves II to XII grossly normal. Moves all four extremities. Gait is intact. RECTAL: Refused and deferred. GENITOURINARY: Refused and deferred. PSYCHIATRIC: Mood and affect is intact. LABORATORY DATA: On admission from the emergency room, , hemoglobin of 14.1, hematocrit 41, platelets 200,000. Sodium 139, potassium 4.0, chloride 102, bicarbonate 30, BUN 16, creatinine 0.9, and GFR greater than 60. Alkaline phosphatase is 118, ALT of 30, AST of 28. Lipase is 108. UA is essentially unremarkable. The patient had a CT of the abdomen and pelvis done, noted to have small prominent mild distention of the free fluid, small bowel loops in the left abdomen. Remaining small bowel loops are unremarkable, may represent gastroenteritis versus very early partial small bowel obstruction. Mild stool burden throughout the colon. Mild hepatic steatosis. Nonobstructive stone in the right kidney. The patient had a KUB done showed focal dilated small bowel loops and on previous CT scan are no longer evident, more reflect decreased ileus or resolving partial small bowel obstruction. ASSESSMENT: 1. Abdominal pain, possibly due to partial small bowel obstruction. 2. Chronic constipation. 3. Morbid obesity. 4. Back pain. 5. Hepatic steatosis. PLAN: Admit the patient to medical floor. Start the patient on IV hydration. Follow up with the laboratory. IV hydration. Discussed case with Dr. Kristian Alicea from Surgery as well as Dr. De Los Santos, Pulmonary Critical Care. If the patient's status improves, consider discharge home to follow up as outpatient with Gastroenterology, Dr. Lincoln for outpatient colonoscopy. Alec Wick M.D. DR: SEBASTIAN JOB#: [id number] CC:
--- NOTE | 2020-08-27 01:14 | Discharge Summary ---
Discharge Summary Discharge Summary _ DATE OF ADMISSION: 08/24/2020 DATE OF DISCHARGE: 08/24/2020 ADMITTING MD: Dr. Alec Wick DISCHARGED BY: Dr. Michi De Los Santos CONSULTANTS: Dr. Michi Alicea BRIEF HOSPITAL COURSE: The patient is a 65-year-old delightful female with past medical history significant for chronic abdominal pain, with history of chronic constipation, low back pain, gastroenteritis, hepatic steatosis, sciatica of r ight side associated with lumbar disc disease and small bowel obstruction in the past, who presented to the hospital complaining of left lower quadrant abdominal pain for several months. The patient stated pain is 10/10 in intensity, progressively worsening and somewhat aggravated with motion. She denied any nausea, vomiting or diarrhea, however patient has been having constipation. She had a history of in the past as well as left ovarian resection. Upon evaluation at the ED vital signs were stable. Blood work didn't show any leukocytosis. Hemoglobin and hematocrit were stable. Urinalysis was negative. Electrolytes were normal. LFTs were normal. CT of the abdomen showed early small bowel obstruction versus gastroenteritis. Incidentally, also found hepatic steatosis, nonobstructive kidney disease stone and gastroenteritis. No diverticulosis or diverticulitis. Patient continued to be nauseous and symptomatic in ED. She was continued on n.p.o. status. She was given IV fluids and pain control. She was then admitted for further evaluation. Patient was admitted to medical floor. She was given IV hydration. She u nderwent surgical and GI evaluation. Patient was able to pass gas. Examination was benign. Patient is not obstructed. Diet was started. She was recommended outpatient colonoscopy. She was cleared for discharge home. FINAL DIAGNOSES: Abdominal pain, possibly due to small bowel obstruction Chronic constipation Morbid obesity Back pain Hepatic steatosis DISPOSITION: Patient was discharged home. DISCHARGE MEDICATIONS: Refer to Discharge Medication List. DISCHARGE INSTRUCTIONS: Follow-up in a week. I have been assigned to complete a discharge summary on this account, I was not involved with the patient's management.--TRINA Madison Jacqueline Robles NP Aug 27, 2020 01:14
== END 2020-08-24 15:00 | disposition home or self-care (01) | DRG 247 ==
LOC: EMR 21:07 → 4E 08-24 00:05 → EDBEDREQ 08-24 00:58
DX: K56.609 Unspecified intestinal obstruction, unspecified as to partial versus complete obstruction (principal); K59.09 Other constipation; E66.01 Morbid (severe) obesity due to excess calories; K76.0 Fatty (change of) liver, not elsewhere classified; M54.41 Lumbago with sciatica, right side
CPT/HCPCS: 36415; 74018; 74177; 80053; 81003; 82962; 83690; 83735; 84100; 85025; 96361; 96374; 96375; 99285; J2405; J7030